=== PATIENT | male | born 1990 | race Caucasian/White ===

== ENCOUNTER 2023-05-23 21:17 | Emergency (ER) | payer SELFPAY ==
[~2023-05-23] VITALS: Ht 175.3 cm; Wt 81.6 kg
[2023-05-23 21:57] VITALS: BP 134/88; TEMP 98.2; O2SAT 98
[2023-05-23] MEDS ORDERED: CEPH500T PO (22:17)
[2023-05-23] MEDS ORDERED: SULF1TAB48 PO (22:17)
== END 2023-05-23 22:22 | disposition home or self-care (01) ==
LOC: ER 21:23
DX: L03.115 Cellulitis of right lower limb (principal); F19.10 Other psychoactive substance abuse, uncomplicated; Z79.899 Other long term (current) drug therapy

== ENCOUNTER 2024-03-05 20:57 | Emergency (ER) | payer OTHER ==
[~2024-03-05] VITALS: Ht 175.3 cm; Wt 86.2 kg
[~2024-03-05 20:57] MED LIST: CEPH500T PO; SULF1TAB48 PO
[2024-03-05 21:11] VITALS: BP 138/86; TEMP 98.5; O2SAT 98
[2024-03-05] MEDS ORDERED: ALBU18HF2 INH (22:10)
== END 2024-03-05 23:45 | disposition left against medical advice (07) ==
LOC: ER 21:05
DX: J06.9 Acute upper respiratory infection, unspecified (principal); Z76.0 Encounter for issue of repeat prescription; Z79.899 Other long term (current) drug therapy; Z79.51 Long term (current) use of inhaled steroids; Z20.822 Contact with and (suspected) exposure to COVID-19

== ENCOUNTER 2024-03-07 18:56 | Emergency (ER) | payer OTHER ==
[~2024-03-07 18:56] MED LIST changes: +ALBU18HF2 INH
== END 2024-03-07 19:30 | disposition left against medical advice (07) ==
LOC: ER 19:04
DX: Z00.00 Encounter for general adult medical examination without abnormal findings (principal); Z53.21 Procedure and treatment not carried out due to patient leaving prior to being seen by health care provider